=== PATIENT | female | born 2000 | race Caucasian/White ===

== ENCOUNTER 2018-01-30 20:10 | Emergency (ER) | payer BC ==
--- NOTE | 2018-01-30 20:24 | EDPHY ---
H & P Time Seen by Provider: 01/30/18 20:20 HPI/ROS: CHIEF COMPLAINT: Right thumb pain x3 weeks HISTORY OF PRESENT ILLNESS: 18-year-old [id number] female states that 3 weeks ago she sat on her hand accidentally and has been experiencing right thumb pain ever since and unable to fully abduct the thumb secondary to pain. Has not sought medical attention since. No paresthesia. Intact skin. PRIMARY CARE PROVIDER: REVIEW OF SYSTEMS: A ten point review of systems was performed and is negative with the exception of the items mentioned in the HPI PHYSICAL EXAM (Prior to examination, patient consented to physical exam, hands were washed and my usual and customary physical exam procedures followed) 1) GENERAL: Well-developed, well-nourished, alert and oriented. Appears to be in no acute distress. 2) HEAD: Normocephalic 3) HEENT: Pupils equal, round, reactive to light bilaterally. 4) LUNGS: Breathing comfortably. 5) MUSCULOSKELETAL: Tender to palpation right thumb proximal phalanx. Unable to fully abduct. No deformity no angulation no shortening. Soft compartments. Normal coloration. 6) SKIN: Intact 7) VASCULAR: pulses and cap refill present are brisk 8) NEUROLOGIC: Radial, ulnar, median nerve function intact with no deficits appreciated on exam DIFFERENTIAL DIAGNOSIS: in no particular order including but not limited to fracture, sprain, compartment syndrome , ulnar collateral ligament injury Procedure: Splint A Velcro thumb spica splint was applied by ER commercial technician. After application of the splint I returned and re-examined the patient. The splint was adequately immobilizing the joint and distal to the splint the patient's circulation and sensation were intact. Patient shows no signs of compartment syndrome. Was given orthopedic precautions. Smoking Status: Current some day smoker Constitutional: Initial Vital Signs Temperature (C) 36.6 C 01/30/18 20:16 Heart Rate 93 01/30/18 20:16 Respiratory Rate 16 01/30/18 20:16 Blood Pressure 100/84 H 01/30/18 20:16 O2 Sat (%) 94 01/30/18 20:16 O2 Delivery Mode Room Air Allergies/Adverse Reactions: No Known Allergies Allergy (Unverified 01/30/18 20:18) Home Medications: Medication Instructions Recorded Prozac 10 MG (*) 01/30/18 Vyvanse 01/30/18 MDM/Departure - MDM Imaging Results: Imaging Impressions Hand X-Ray 01/30/18 20:22 Impression: Negative right hand radiographs. Images reviewed myself - Depart Disposition: Home, Routine, Self-Care Clinical Impression: Pain of right thumb Condition: Good Instructions: Thumb Fracture (ED) Additional Instructions: Return to the ER immediately if you experience discoloration, have worsening pain, numbness, tingling, or any other symptoms that concern you. If you received x-rays in the emergency department today, be advised, that ligamentous , tendon, muscular, and other non-bony injury cannot be fully ruled out. Try to keep your affected extremity elevated above the level of your chest, and keep cold packs on the affected area, for the next 48 hours. Referrals: Bharat Harp MD [Medical Doctor] - 2-3 days, call for appt.
[2018-01-30 21:17] VITALS: BP 134/71
== END 2018-01-30 21:05 | disposition home or self-care (01) ==
DX: S69.91XA Unspecified injury of right wrist, hand and finger(s), initial encounter (principal); X58.XXXA Exposure to other specified factors, initial encounter; F17.200 Nicotine dependence, unspecified, uncomplicated
CPT/HCPCS: L3807

== ENCOUNTER 2018-05-18 16:53 | Emergency (ER) | payer BC ==
--- NOTE | 2018-05-18 17:43 | EDPHY ---
H & P Time Seen by Provider: 05/18/18 17:26 HPI/ROS: CHIEF COMPLAINT: Right calcaneus pain HISTORY OF PRESENT ILLNESS: 18-year-old female via private vehicle complaining of right calcaneus pain after she fell down some stairs last evening. Unable to bear weight. Isolated pain to the calcaneus. No ankle pain. Proximal tibia or fibula pain or knee pain. No head injury. No paresthesia. Intact skin. PHYSICAL EXAM (Prior to examination, patient consented to physical exam, hands were washed and my usual and customary physical exam procedures followed) 1) GENERAL: Well-developed, well-nourished, alert and oriented. Appears to be in no acute distress. 2) HEAD: Normocephalic 3) HEENT: Pupils equal, round, reactive to light bilaterally. 4) LUNGS: Breathing comfortably. 5) MUSCULOSKELETAL: Focally tender to palpation right calcaneus. Intact skin. No tenting. Ankle nontender. Remainder of foot including 5th metatarsal nontender. proximal tibia and fibula nontender .5th MT nontender negative Couch test, compartments soft 6) SKIN: Intact 7) VASCULAR: DP,PT pulses and cap refill present and brisk DIFFERENTIAL DIAGNOSIS: in no particular order including but not limited to fracture, sprain, compartment syndrome Procedure: Crutches indications for crutch use discussed with patient. Patient fitted for crutches by ER staff. Observed ambulating with crutches. I think the patient has the capacity to safely use crutches. Usual and customary crutch walking precautions provided Procedure: Splint A sanjuana boot splint was applied by ER instrument and controls technician. After application of the splint I returned and re-examined the patient. The splint was adequately immobilizing the joint and distal to the splint the patient's circulation and sensation were intact. Patient shows no signs of compartment syndrome. Was given orthopedic precautions. Smoking Status: Current some day smoker Constitutional: Initial Vital Signs Temperature (C) 36.7 C 05/18/18 16:56 Heart Rate 88 05/18/18 16:56 Respiratory Rate 16 05/18/18 16:56 Blood Pressure 118/65 12/19/18 16:56 O2 Sat (%) 98 05/18/18 16:56 O2 Delivery Mode Room Air Allergies/Adverse Reactions: No Known Allergies Allergy (Unverified 05/18/18 16:56) Home Medications: Medication Instructions Recorded Prozac 10 MG (*) 01/30/18 Vyvanse 01/30/18 MDM/Departure - MDM Imaging Results: Imaging Impressions Foot X-Ray 05/18/18 17:01 Impression: Nothing acute identified. 2. Right calcaneus, 2 views, History: Trauma last night, cannot bear weight Findings: No calcaneal fracture or malalignment is identified. Impression: Negative. Calcaneus X-Ray 05/18/18 17:45 Impression: Nothing acute identified. 2. Right calcaneus, 2 views, History: Trauma last night, cannot bear weight Findings: No calcaneal fracture or malalignment is identified. Impression: Negative. Images reviewed myself ED Course/Re-evaluation: Re-evaluation with serial exams was recently at 6:10 p.m.. Reviewed her x-rays interpreted by staff radiologist as negative. She has soft compartments and is neurovascularly intact. She will be splinted, given crutches, given my usual customary orthopedic precautions instructions and instructed follow up with Orthopedics. Given this referral information. Tylenol and Motrin for discomfort. Care of patient under supervision of secondary supervising physician Dr Lewis . - Depart Disposition: Home, Routine, Self-Care Clinical Impression: Foot pain, right Condition: Good Instructions: Foot Sprain (ED) Additional Instructions: Return to the ER immediately if you experience discoloration, have worsening pain, numbness, tingling, or any other symptoms that concern you. If you received x-rays in the emergency department today, be advised, that ligamentous , tendon, muscular, and other non-bony injury cannot be fully ruled out. Try to keep your affected extremity elevated above the level of your chest, and keep cold packs on the affected area, for the next 48 hours. Referrals: Chandra Johnson MD [Medical Doctor] - As per Instructions
[2018-05-18 18:45] VITALS: BP 120/85
== END 2018-05-18 18:54 | disposition home or self-care (01) ==
DX: M79.671 Pain in right foot (principal); W10.9XXA Fall (on) (from) unspecified stairs and steps, initial encounter; F17.200 Nicotine dependence, unspecified, uncomplicated
CPT/HCPCS: L4386